=== PATIENT | female | born 1950 | race Caucasian/White ===

== ENCOUNTER 2017-09-09 17:11 | Emergency (ER) | payer MEDICARE, OTHER ==
[~2017-09-09] VITALS: Ht 157.5 cm; Wt 101.3 kg
[2017-09-09 18:19] LABS: BASOPHILS # (AUTO) 0.08 x10^3/uL (0-0.1); BASOPHILS % (AUTO) 1 % (0-1); EOSINOPHILS # (AUTO) 0.41 x10^3/uL (0-0.4); EOSINOPHILS % (AUTO) 5 % (1-7); LYMPHOCYTES # (AUTO) 1.88 x10^3/uL (1-3.4); LYMPHOCYTES % (AUTO) 21 % (22-44); MD NO; MEAN CORPUSCULAR HEMOGLOBIN 29.9 pg (27.0-34.8); MEAN CORPUSCULAR HGB CONC 33.3 g/dL (32.4-35.8); MEAN CORPUSCULAR VOLUME 89.5 fL (80-100); MEAN PLATELET VOLUME 9.3 fL (7.4-10.4); MONOCYTES % (AUTO) 8 % (2-9); NEUTROPHILS # (AUTO) 5.77 x10^3/uL (1.8-6.8); NEUTROPHILS % (AUTO) 65 % (42-75); PLATELET COUNT 219 x10^3/uL (130-400); RED BLOOD COUNT 5.78 x10^6/uL (3.82-5.3); RED CELL DISTRIBUTION WIDTH 14.6 % (9.6-15.2)
[2017-09-09 18:22] LABS: INTERNATIONAL NORMALIZED RATIO 0.99 (0.93-1.1); PROTHROMBIN TIME 10.3 Seconds (9.6-11.5)
[2017-09-09 18:26] LABS: ALANINE AMINOTRANSFERASE 27 U/L (12-78); ALBUMIN 3.3 g/dL (3.4-5.0); CALCIUM 8.9 mg/dL (8.5-10.1); CREATININE 1.26 mg/dL (0.55-1.02)
[2017-09-09 18:28] LABS: ALKALINE PHOSPHATASE 99 U/L (45-117); BILIRUBIN,TOTAL 0.5 mg/dL (0.2-1.0); TOTAL PROTEIN 7.2 g/dL (6.4-8.2)
[2017-09-09 18:45] LABS: ANION GAP 11 mmol/L (5-15); CHLORIDE 109 mmol/L (98-107)
[2017-09-09] MEDS ORDERED: CHLO25TA PO (18:56)
[2017-09-09] MEDS ORDERED: LISI-167 PO (18:56)
[2017-09-09] MEDS ORDERED: ASPI-496 PO (18:56)
[2017-09-09] MEDS ORDERED: RIVA20TA PO (18:56)
[2017-09-09] MEDS ORDERED: METO200T47 PO (18:56)
[2017-09-09] MEDS ORDERED: FURO20TA3 PO (18:56)
[2017-09-09] MEDS ORDERED: POTASSIUM CHLORIDE 20 MEQ TAB.ER.PRT ONE (19:25)
[2017-09-09] MEDS ORDERED: POTASSIUM CHLORIDE 20 MEQ TAB.ER.PRT PO ONE (19:30)
[2017-09-09 19:40] VITALS: BP 128/92
== END 2017-09-09 19:53 | disposition home or self-care (01) ==
LOC: ED 19:45
DX: R53.1 Weakness (principal); G51.0 Bell's palsy; I48.91 Unspecified atrial fibrillation; Z88.0 Allergy status to penicillin
CPT/HCPCS: 36415; 70450; 70551; 80053; 85025; 85610; 85730; 99285

== ENCOUNTER → 2017-09-23 | Outpatient (CLI) | payer MEDICARE, OTHER ==
[~2017-09-23] MED LIST: APIX5TAB PO; ASPI-496 PO; CHLO25TA PO; FURO-93 PO; FURO20TA3 PO; LISI-167 PO; METO-93 PO; METO200T47 PO; POTA1POW4 PO; RIVA20TA PO
== END | disposition home or self-care (01) ==
LOC: CFH 16:35
PROVIDERS: ATTEND Physician Assistant
DX: J44.0 Chronic obstructive pulmonary disease with (acute) lower respiratory infection (principal); J18.9 Pneumonia, unspecified organism
CPT/HCPCS: 71046

== ENCOUNTER 2017-09-29 09:37 | Day surgery (SDC) | payer MEDICARE, OTHER ==
[~2017-09-29] VITALS: Ht 157.5 cm; Wt 103.0 kg
[~2017-09-29 09:37] MED LIST changes: -APIX5TAB PO; -FURO-93 PO; -METO-93 PO; -POTA1POW4 PO
[2017-09-29] MEDS ORDERED: POTA1POW4 PO (10:19)
[2017-09-29] MEDS ORDERED: APIX5TAB PO (10:20)
[2017-09-29] MEDS ORDERED: METO-93 PO (10:21)
[2017-09-29 10:30] VITALS: BP 104/68
[2017-09-29 10:48] LABS: BASOPHILS # (AUTO) 0.08 x10^3/uL (0-0.1); BASOPHILS % (AUTO) 1 % (0-1); EOSINOPHILS # (AUTO) 0.47 x10^3/uL (0-0.4); EOSINOPHILS % (AUTO) 5 % (1-7); LYMPHOCYTES % (AUTO) 19 % (22-44); MD NO; MEAN CORPUSCULAR HEMOGLOBIN 30.4 pg (27.0-34.8); MEAN CORPUSCULAR HGB CONC 33.9 g/dL (32.4-35.8); MEAN CORPUSCULAR VOLUME 89.8 fL (80-100); MEAN PLATELET VOLUME 8.6 fL (7.4-10.4); MONOCYTES # (AUTO) 0.65 x10^3/uL (0.2-0.8); MONOCYTES % (AUTO) 8 % (2-9); NEUTROPHILS # (AUTO) 5.87 x10^3/uL (1.8-6.8); NEUTROPHILS % (AUTO) 68 % (42-75); PLATELET COUNT 229 x10^3/uL (130-400); RED BLOOD COUNT 5.45 x10^6/uL (3.82-5.3); RED CELL DISTRIBUTION WIDTH 15.9 % (9.6-15.2)
[2017-09-29 11:00] LABS: ANION GAP 11 mmol/L (5-15); CALCIUM 8.4 mg/dL (8.5-10.1); CHLORIDE 107 mmol/L (98-107); CREATININE 1.22 mg/dL (0.55-1.02)
[2017-09-29] MEDS ORDERED: FURO-93 PO (11:09)
[2017-09-29] MEDS ORDERED: SODIUM CHLORIDE 0.9% 500 ML IV PRN (12:00)
== END 2017-09-29 13:37 ==
LOC: CACL 09:37
PROVIDERS: ATTEND Internal Medicine Cardiovascular Disease
DX: I48.91 Unspecified atrial fibrillation (principal); I48.92 Unspecified atrial flutter; I49.1 Atrial premature depolarization; I10 Essential (primary) hypertension; G51.0 Bell's palsy; Z71.6 Tobacco abuse counseling; Z88.1 Allergy status to other antibiotic agents; Z88.0 Allergy status to penicillin; Z88.8 Allergy status to other drugs, medicaments and biological substances
CPT/HCPCS: 36415; 80048; 85025; 92960; 93005

== ENCOUNTER 2017-10-19 09:00 | Observation (INO) | payer MEDICARE, OTHER ==
[~2017-10-19] VITALS: Ht 157.5 cm; Wt 105.4 kg
[~2017-10-19 09:00] MED LIST changes: +APIX5TAB PO; +FURO-93 PO; +METO-93 PO; +POTA1POW4 PO
[2017-10-19] MEDS ORDERED: PLEASE ENTER HEIGHT AND WEIGHT MC SCH (10:02)
[2017-10-19] MEDS ORDERED: POTA20TA14 PO (10:17)
[2017-10-19] MEDS ORDERED: TIOT4MIS3 INH (10:17)
[2017-10-19 10:21] VITALS: BP 119/77
[2017-10-19] MEDS ORDERED: NICO-487 TD (10:28)
[2017-10-19] MEDS: CHLORTHALIDONE 25 MG TABLET PO SCH (10:48)
[2017-10-19] MEDS: APIXABAN 5 MG TABLET PO SCH ×2 (10:48→20:47)
[2017-10-19] MEDS ORDERED: METOPROLOL SUCCINATE 50 MG TAB.ER.24H PO SCH ×2 (11:00→21:00)
[2017-10-19] MEDS: AMIODARONE 200 MG TABLET PO SCH ×3 (11:06→20:47)
[2017-10-19] MEDS ORDERED: METO-93 PO (11:18)
[2017-10-19 11:45] LABS: ANION GAP 8 mmol/L (5-15); CALCIUM 8.9 mg/dL (8.5-10.1); CHLORIDE 107 mmol/L (98-107); CHOLESTEROL, TOTAL 188 mg/dL (140-239); CREATININE 1.38 mg/dL (0.55-1.02); TRIGLYCERIDES 156 mg/dL (50-200); VLDL CHOLESTEROL 31 mg/dL (0-25)
[2017-10-19 11:49] LABS: CHOL/HDL RATIO 5.2; FREE T4 (FREE THYROXINE) 1.19 ng/dL (0.76-1.46); HDL CHOL % 19 % (28-40); HDL CHOLESTEROL (DIRECT) 36 mg/dL (40-60); LDL CHOLESTEROL,CALCULATED 121 mg/dL (54-169); LDL/HDL RATIO 3.4 (0.5-3.0); TROPONIN I < 0.015 ng/mL (0.000-0.045)
[2017-10-19] MEDS: POTASSIUM CHLORIDE 20 MEQ TAB.ER.PRT PO SCH ×2 (13:44→17:40)
[2017-10-19 15:00] VITALS: BP 125/80
[2017-10-19 17:03] LABS: TROPONIN I < 0.015 ng/mL (0.000-0.045)
[2017-10-19 18:36] VITALS: BP 102/69
[2017-10-19] MEDS: NICOTINE 21 MG/24 HR PATCH.TD24 TD SCH (20:46)
[2017-10-19] MEDS: SODIUM CHLORIDE FLUSH 10ML SYR IVF SCH (20:48)
[2017-10-19 22:33] LABS: TROPONIN I < 0.015 ng/mL (0.000-0.045)
[2017-10-20 03:53] VITALS: BP 132/77
[2017-10-20] MEDS: ASPIRIN 81 MG TABLET EC PO SCH (06:05)
[2017-10-20 08:03] VITALS: BP 126/61
[2017-10-20 08:13] LABS: ANION GAP 11 mmol/L (5-15); CALCIUM 8.7 mg/dL (8.5-10.1); CHLORIDE 106 mmol/L (98-107); CREATININE 1.26 mg/dL (0.55-1.02)
[2017-10-20] MEDS ORDERED: METOPROLOL SUCCINATE 50 MG TAB.ER.24H PO SCH (09:00)
[2017-10-20] MEDS: CHLORTHALIDONE 25 MG TABLET PO SCH (09:04)
[2017-10-20] MEDS: AMIODARONE 200 MG TABLET PO SCH ×3 (09:04→20:47)
[2017-10-20] MEDS: APIXABAN 5 MG TABLET PO SCH ×2 (09:04→20:47)
[2017-10-20] MEDS: POTASSIUM CHLORIDE 20 MEQ TAB.ER.PRT PO SCH (09:04)
[2017-10-20] MEDS: STIOLTO PO SCH (09:05)
[2017-10-20] MEDS: SODIUM CHLORIDE FLUSH 10ML SYR IVF SCH ×2 (09:05→20:46)
[2017-10-20 14:30] VITALS: BP 117/79
[2017-10-20 19:55] VITALS: BP 114/74
[2017-10-20] MEDS: NICOTINE 21 MG/24 HR PATCH.TD24 TD SCH (20:47)
[2017-10-21 00:44] VITALS: BP 116/70
[2017-10-21 05:24] LABS: CHLORIDE 105 mmol/L (98-107)
[2017-10-21 05:28] LABS: ANION GAP 9 mmol/L (5-15); CALCIUM 9.5 mg/dL (8.5-10.1); CREATININE 1.37 mg/dL (0.55-1.02)
[2017-10-21] MEDS: AMIODARONE 200 MG TABLET PO SCH (08:01)
[2017-10-21] MEDS: CHLORTHALIDONE 25 MG TABLET PO SCH (08:02)
[2017-10-21] MEDS: ASPIRIN 81 MG TABLET EC PO SCH (08:02)
[2017-10-21] MEDS: APIXABAN 5 MG TABLET PO SCH (08:02)
[2017-10-21] MEDS: STIOLTO PO SCH (08:06)
[2017-10-21] MEDS: SODIUM CHLORIDE FLUSH 10ML SYR IVF SCH (08:11)
[2017-10-21 08:18] VITALS: BP 152/68
[2017-10-21] MEDS ORDERED: POTA20TA14 PO (08:54)
[2017-10-21] MEDS ORDERED: METO-93 PO (08:54)
[2017-10-21] MEDS ORDERED: AMIO200T42 PO (08:54)
[2017-10-21] MEDS ORDERED: METOPROLOL SUCCINATE 50 MG TAB.ER.24H PO SCH (09:00)
[2017-10-21] MEDS ORDERED: AMIODARONE 200 MG TABLET PO SCH (21:00)
== END 2017-10-21 13:35 | disposition home or self-care (01) ==
LOC: INTOOBSV 09:38 → 5SO 09:38 → DCLOUNGE 10-21 13:23
PROVIDERS: ADMIT Internal Medicine Cardiovascular Disease; ATTEND Internal Medicine Cardiovascular Disease
DX: I48.0 Paroxysmal atrial fibrillation (principal); I10 Essential (primary) hypertension; G51.0 Bell's palsy; R06.02 Shortness of breath; E87.6 Hypokalemia; I48.92 Unspecified atrial flutter; Z71.6 Tobacco abuse counseling; Z72.0 Tobacco use
CPT/HCPCS: 36415; 71046; 80048; 80061; 83735; 84439; 84443; 84484; 85014; 85018; 93005; G0378

== ENCOUNTER → 2018-02-19 | Outpatient (CLI) | payer MEDICARE, OTHER ==
[~2018-02-19] MED LIST changes: +AMIO200T42 PO; +NICO-487 TD; +POTA20TA14 PO; +TIOT4MIS3 INH
== END | disposition home or self-care (01) ==
LOC: CFH 08:32
PROVIDERS: ATTEND Internal Medicine Critical Care Medicine
DX: Z12.2 Encounter for screening for malignant neoplasm of respiratory organs (principal); F17.210 Nicotine dependence, cigarettes, uncomplicated; J98.11 Atelectasis
CPT/HCPCS: G0297

== ENCOUNTER 2018-05-18 08:09 | Inpatient (IN) | payer MEDICARE, OTHER ==
[~2018-05-18] VITALS: Ht 157.5 cm; Wt 114.0 kg
--- NOTE | 2018-05-18 08:33 | NUR ---
PT C/O CHEST PRESSURE SINCE YESTERDAY. ALSO THIS AM PT NOTED HEMATURIA AND FREQUENCY. ASKED PT FOR URINE SAMPLE. SHE WAS UNABLE TO PROVIDE ONE AT THIS TIME.
[2018-05-18] MEDS ORDERED: NITROGLYCERIN SINGLE TAB 0.4 MG SL ONE ×2 (08:53→09:00)
[2018-05-18] MEDS ORDERED: ASPIRIN 81 MG TABLET CHEW PO ONE (09:00)
[2018-05-18 09:11] LABS: BASOPHILS # (AUTO) 0.07 x10^3/uL (0-0.1); BASOPHILS % (AUTO) 1 % (0-1); EOSINOPHILS # (AUTO) 0.22 x10^3/uL (0-0.4); EOSINOPHILS % (AUTO) 2 % (1-7); LYMPHOCYTES # (AUTO) 1.25 x10^3/uL (1-3.4); LYMPHOCYTES % (AUTO) 12 % (22-44); MD NO; MEAN CORPUSCULAR HEMOGLOBIN 31.4 pg (27.0-34.8); MEAN CORPUSCULAR HGB CONC 33.3 g/dL (32.4-35.8); MEAN CORPUSCULAR VOLUME 94.1 fL (80-100); MEAN PLATELET VOLUME 8.6 fL (7.4-10.4); MONOCYTES # (AUTO) 0.94 x10^3/uL (0.2-0.8); MONOCYTES % (AUTO) 9 % (2-9); NEUTROPHILS # (AUTO) 7.72 x10^3/uL (1.8-6.8); NEUTROPHILS % (AUTO) 76 % (42-75); PLATELET COUNT 235 x10^3/uL (130-400); RED BLOOD COUNT 4.66 x10^6/uL (3.82-5.3); RED CELL DISTRIBUTION WIDTH 15.3 % (9.6-15.2)
[2018-05-18 09:19] LABS: INTERNATIONAL NORMALIZED RATIO 1.11 (0.93-1.1); PROTHROMBIN TIME 11.7 Seconds (9.6-11.5)
[2018-05-18 09:20] LABS: ALANINE AMINOTRANSFERASE 25 U/L (12-78); ALBUMIN 3.2 g/dL (3.4-5.0); ANION GAP 11 mmol/L (5-15); CALCIUM 9.1 mg/dL (8.5-10.1); CHLORIDE 102 mmol/L (98-107); CREATININE 1.45 mg/dL (0.55-1.02)
[2018-05-18 09:25] LABS: ALKALINE PHOSPHATASE 100 U/L (45-117); BILIRUBIN,TOTAL 0.7 mg/dL (0.2-1.0); TOTAL PROTEIN 7.6 g/dL (6.4-8.2); TROPONIN I < 0.015 ng/mL (0.000-0.045)
[2018-05-18] MEDS ORDERED: NITROGLYCERIN 0.4 MG BOTTLE (25 TABS) SL PRN ×2 (09:30→12:00)
[2018-05-18] MEDS ORDERED: FENTANYL PF 100 MCG/2ML IVPush PRN (09:30)
--- NOTE | 2018-05-18 10:07 | NUR ---
PT IS ON ALL MONITORS WITH AUDIBLE ALARMS. VSS. PT STATES JARET X 2 HAS BROUGHT HER CHEST PRESSURE FROM 8 TO 4.
[2018-05-18] MEDS ORDERED: FENTANYL PF 100 MCG/2ML ONE (10:16)
[2018-05-18] MEDS ORDERED: ASPIRIN 81 MG TABLET CHEW ONE (10:16)
[2018-05-18] MEDS ORDERED: GABA300C10 PO (10:32)
[2018-05-18] MEDS ORDERED: AMIO200T42 PO (10:32)
[2018-05-18] MEDS ORDERED: METH500T7 PO (10:32)
--- NOTE | 2018-05-18 10:35 | NUR ---
home med updated us at bed side was completed vss given fentanyl iv per pt's c/o pain
--- NOTE | 2018-05-18 10:59 | NUR ---
straight cath done ua in lab
[2018-05-18 11:22] LABS: MICROSCOPIC INDICATED
[2018-05-18 11:38] LABS: CULTURE INDICATED? YES
[2018-05-18] MEDS ORDERED: morphine SULFATE 10 MG/ML, 1ML IVPush PRN (12:00)
[2018-05-18] MEDS ORDERED: NITROGLYCERIN 0.4 MG/SPRAY SL PRN (12:00)
[2018-05-18] MEDS ORDERED: hydrALAzine 20 MG/ML, 1ML IVPush PRN (12:00)
[2018-05-18] MEDS: TEMPLATE NON-FORMULARY MED. (Tiotropium Br/Olodaterol HCl (Stiolto Respimat Inhal Spray) 2 INH SCH (12:00)
[2018-05-18] MEDS ORDERED: FUROSEMIDE 20 MG TABLET PO PRN (12:00)
--- NOTE | 2018-05-18 12:01 | NUR ---
given report to radha de vss stable
[2018-05-18 13:12] VITALS: BP 126/84
[2018-05-18 15:22] LABS: TROPONIN I < 0.015 ng/mL (0.000-0.045)
[2018-05-18] MEDS: APIXABAN 5 MG TABLET PO SCH ×2 (15:27→20:01)
[2018-05-18] MEDS ORDERED: POTASSIUM CHLORIDE 20 MEQ TAB.ER.PRT PO ONE (18:00)
[2018-05-18] MEDS ORDERED: MAGNESIUM SULFATE PMX 2GM/50ML 50 ML IV ONE (18:00)
[2018-05-18] MEDS: GABAPENTIN 300 MG CAPSULE PO SCH (20:01)
[2018-05-18] MEDS: METHOCARBAMOL 500 MG TABLET PO PRN (20:01)
[2018-05-18 20:02] VITALS: BP 132/73
[2018-05-18 21:45] LABS: TROPONIN I < 0.015 ng/mL (0.000-0.045)
[2018-05-19 00:42] VITALS: BP 132/56
[2018-05-19 05:17] LABS: BASOPHILS # (AUTO) 0.07 x10^3/uL (0-0.1); BASOPHILS % (AUTO) 1 % (0-1); EOSINOPHILS # (AUTO) 0.28 x10^3/uL (0-0.4); EOSINOPHILS % (AUTO) 3 % (1-7); LYMPHOCYTES # (AUTO) 1.52 x10^3/uL (1-3.4); LYMPHOCYTES % (AUTO) 18 % (22-44); MD NO; MEAN CORPUSCULAR HEMOGLOBIN 31.4 pg (27.0-34.8); MEAN CORPUSCULAR HGB CONC 33.4 g/dL (32.4-35.8); MEAN CORPUSCULAR VOLUME 94.2 fL (80-100); MEAN PLATELET VOLUME 8.4 fL (7.4-10.4); MONOCYTES # (AUTO) 0.87 x10^3/uL (0.2-0.8); MONOCYTES % (AUTO) 10 % (2-9); NEUTROPHILS # (AUTO) 5.97 x10^3/uL (1.8-6.8); NEUTROPHILS % (AUTO) 69 % (42-75); PLATELET COUNT 217 x10^3/uL (130-400); RED CELL DISTRIBUTION WIDTH 15.2 % (9.6-15.2)
[2018-05-19 05:39] LABS: CHLORIDE 102 mmol/L (98-107); HEMOGLOBIN A1C 5.9 % (4.2-6.3)
[2018-05-19 05:48] LABS: ANION GAP 8 mmol/L (5-15); CHOL/HDL RATIO 4.2; CHOLESTEROL, TOTAL 186 mg/dL (140-239); CREATININE 1.66 mg/dL (0.55-1.02); HDL CHOL % 24 % (28-40); HDL CHOLESTEROL (DIRECT) 44 mg/dL (40-60); LDL CHOLESTEROL,CALCULATED 113 mg/dL (54-169); LDL/HDL RATIO 2.6 (0.5-3.0); TRIGLYCERIDES 144 mg/dL (50-200); VLDL CHOLESTEROL 29 mg/dL (0-25)
[2018-05-19 07:19] VITALS: BP 137/76
[2018-05-19] MEDS: ASPIRIN 81 MG TABLET EC PO SCH (08:45)
[2018-05-19] MEDS: AMIODARONE 200 MG TABLET PO SCH (08:45)
[2018-05-19] MEDS: TEMPLATE NON-FORMULARY MED. (Tiotropium Br/Olodaterol HCl (Stiolto Respimat Inhal Spray) 2 INH SCH (08:46)
[2018-05-19] MEDS: APIXABAN 5 MG TABLET PO SCH (08:46)
[2018-05-19] MEDS: METOPROLOL SUCCINATE 50 MG TAB.ER.24H PO SCH (08:46)
[2018-05-19] MEDS: GABAPENTIN 300 MG CAPSULE PO SCH ×2 (08:47→20:03)
[2018-05-19] MEDS ORDERED: CHLORTHALIDONE 25 MG TABLET PO SCH (09:00)
[2018-05-19] MEDS ORDERED: REGADENOSON 0.4 MG/5 ML SYRINGE ONE (09:02)
[2018-05-19] MEDS ORDERED: MAGNESIUM SULFATE PMX 2GM/50ML 50 ML IV ONE (11:00)
[2018-05-19] MEDS ORDERED: PHARMACY MAY ADJ FOR RENAL FX MC PRN (11:00)
[2018-05-19] MEDS: SODIUM CHLORIDE 0.9% 1,000 ML IV SCH (11:00)
[2018-05-19] MEDS: CEFTRIAXONE PMX 1GM/50ML 50 ML IV SCH (12:27)
[2018-05-19 12:38] VITALS: BP 132/74
[2018-05-19] MEDS ORDERED: POTASSIUM CHLORIDE 20 MEQ TAB.ER.PRT PO ONE (17:30)
[2018-05-19 19:50] VITALS: BP 119/68
[2018-05-20] MEDS: METHOCARBAMOL 500 MG TABLET PO PRN (01:09)
[2018-05-20 01:14] VITALS: BP 149/69
[2018-05-20] MEDS: SODIUM CHLORIDE 0.9% 1,000 ML IV SCH ×2 (04:04→16:05)
[2018-05-20 06:00] LABS: BASOPHILS # (AUTO) 0.06 x10^3/uL (0-0.1); BASOPHILS % (AUTO) 1 % (0-1); EOSINOPHILS # (AUTO) 0.24 x10^3/uL (0-0.4); EOSINOPHILS % (AUTO) 4 % (1-7); LYMPHOCYTES # (AUTO) 1.38 x10^3/uL (1-3.4); LYMPHOCYTES % (AUTO) 23 % (22-44); MD NO; MEAN CORPUSCULAR HEMOGLOBIN 31.9 pg (27.0-34.8); MEAN CORPUSCULAR HGB CONC 33.8 g/dL (32.4-35.8); MEAN CORPUSCULAR VOLUME 94.4 fL (80-100); MEAN PLATELET VOLUME 8.6 fL (7.4-10.4); MONOCYTES # (AUTO) 0.58 x10^3/uL (0.2-0.8); MONOCYTES % (AUTO) 10 % (2-9); NEUTROPHILS % (AUTO) 63 % (42-75); PLATELET COUNT 185 x10^3/uL (130-400); RED BLOOD COUNT 3.65 x10^6/uL (3.82-5.3); RED CELL DISTRIBUTION WIDTH 14.9 % (9.6-15.2)
[2018-05-20 06:08] LABS: ANION GAP 7 mmol/L (5-15); CALCIUM 8.3 mg/dL (8.5-10.1); CHLORIDE 105 mmol/L (98-107)
[2018-05-20 06:10] LABS: CREATININE 1.66 mg/dL (0.55-1.02)
[2018-05-20 07:05] VITALS: BP 128/85
[2018-05-20] MEDS: TEMPLATE NON-FORMULARY MED. (Tiotropium Br/Olodaterol HCl (Stiolto Respimat Inhal Spray) 2 INH SCH (07:48)
[2018-05-20] MEDS: ASPIRIN 81 MG TABLET EC PO SCH (07:59)
[2018-05-20] MEDS: AMIODARONE 200 MG TABLET PO SCH (08:00)
[2018-05-20] MEDS: METOPROLOL SUCCINATE 50 MG TAB.ER.24H PO SCH (08:00)
[2018-05-20] MEDS: GABAPENTIN 300 MG CAPSULE PO SCH ×2 (08:00→20:39)
[2018-05-20] MEDS: TAMSULOSIN 0.4 MG CAP.ER.24H PO SCH (09:34)
[2018-05-20] MEDS: CEFTRIAXONE PMX 1GM/50ML 50 ML IV SCH (11:31)
[2018-05-20 12:50] VITALS: BP 120/69
[2018-05-20 18:41] VITALS: BP 128/69
[2018-05-21 01:12] VITALS: BP 138/67
[2018-05-21] MEDS ORDERED: GEMFIBROZIL 600 MG TABLET ONE (03:26)
[2018-05-21] MEDS: METHOCARBAMOL 500 MG TABLET PO PRN (03:43)
[2018-05-21] MEDS: SODIUM CHLORIDE 0.9% 1,000 ML IV SCH (05:12)
[2018-05-21 05:16] LABS: BASOPHILS # (AUTO) 0.05 x10^3/uL (0-0.1); BASOPHILS % (AUTO) 1 % (0-1); EOSINOPHILS # (AUTO) 0.27 x10^3/uL (0-0.4); EOSINOPHILS % (AUTO) 4 % (1-7); LYMPHOCYTES # (AUTO) 1.25 x10^3/uL (1-3.4); LYMPHOCYTES % (AUTO) 20 % (22-44); MD NO; MEAN CORPUSCULAR HEMOGLOBIN 31.4 pg (27.0-34.8); MEAN CORPUSCULAR HGB CONC 33.4 g/dL (32.4-35.8); MEAN CORPUSCULAR VOLUME 94.1 fL (80-100); MEAN PLATELET VOLUME 8.7 fL (7.4-10.4); MONOCYTES # (AUTO) 0.55 x10^3/uL (0.2-0.8); MONOCYTES % (AUTO) 9 % (2-9); NEUTROPHILS # (AUTO) 4.25 x10^3/uL (1.8-6.8); NEUTROPHILS % (AUTO) 67 % (42-75); PLATELET COUNT 185 x10^3/uL (130-400); RED BLOOD COUNT 3.72 x10^6/uL (3.82-5.3)
[2018-05-21 05:27] LABS: ANION GAP 7 mmol/L (5-15); CALCIUM 8.6 mg/dL (8.5-10.1); CHLORIDE 106 mmol/L (98-107); CREATININE 1.28 mg/dL (0.55-1.02)
[2018-05-21 07:05] VITALS: BP 145/84
[2018-05-21] MEDS: TEMPLATE NON-FORMULARY MED. (Tiotropium Br/Olodaterol HCl (Stiolto Respimat Inhal Spray) 2 INH SCH (09:00)
[2018-05-21] MEDS: ASPIRIN 81 MG TABLET EC PO SCH (09:14)
[2018-05-21] MEDS: METOPROLOL SUCCINATE 50 MG TAB.ER.24H PO SCH (09:14)
[2018-05-21] MEDS: GABAPENTIN 300 MG CAPSULE PO SCH (09:14)
[2018-05-21] MEDS: AMIODARONE 200 MG TABLET PO SCH (09:14)
[2018-05-21] MEDS: TAMSULOSIN 0.4 MG CAP.ER.24H PO SCH (09:14)
[2018-05-21] MEDS: CEFTRIAXONE PMX 1GM/50ML 50 ML IV SCH (11:13)
[2018-05-21] MEDS ORDERED: CEFD300C37 PO (11:25)
[2018-05-21] MEDS ORDERED: METH500T7 PO (11:25)
[2018-05-21] MEDS ORDERED: TAMS-11 PO (11:30)
[2018-05-21 13:15] VITALS: BP 109/68
== END 2018-05-21 16:50 | disposition home or self-care (01) | DRG 291 ==
LOC: ED 10:00 → INTOOBSV 11:11 → EDIP 11:11 → OBSVTOIN 11:11 → 5SO 12:33 → 3NW 05-20 18:33 → DCLOUNGE 05-21 16:25
PROVIDERS: ADMIT Hospitalist; ATTEND Hospitalist
PROC: 0T9B70Z Drainage of Bladder with Drainage Device, Via Natural or Artificial Opening (ICD-10-PCS; principal; 2018-05-18)
DX: I13.0 Hypertensive heart and chronic kidney disease with heart failure and stage 1 through stage 4 chronic kidney disease, or unspecified chronic kidney disease (principal); N17.0 Acute kidney failure with tubular necrosis; I50.33 Acute on chronic diastolic (congestive) heart failure; N39.0 Urinary tract infection, site not specified; Z68.42 Body mass index [BMI] 45.0-49.9, adult; D68.69 Other thrombophilia; E44.1 Mild protein-calorie malnutrition; N18.3 Chronic kidney disease, stage 3 (moderate); I48.91 Unspecified atrial fibrillation; J44.9 Chronic obstructive pulmonary disease, unspecified; E66.9 Obesity, unspecified; G51.0 Bell's palsy; B96.20 Unspecified Escherichia coli [E. coli] as the cause of diseases classified elsewhere; R31.9 Hematuria, unspecified; K57.90 Diverticulosis of intestine, part unspecified, without perforation or abscess without bleeding; E87.6 Hypokalemia; F17.210 Nicotine dependence, cigarettes, uncomplicated; N20.0 Calculus of kidney; Z79.01 Long term (current) use of anticoagulants; Z99.81 Dependence on supplemental oxygen; Z88.1 Allergy status to other antibiotic agents; Z88.0 Allergy status to penicillin; Z88.2 Allergy status to sulfonamides
CPT/HCPCS: 36415; 71045; 74176; 76770; 78452; 80048; 80053; 80061; 81001; 83036; 83690; 83735; 83880; 84484; 85025; 85610; 85730; 87077; 87086; 87186; 93005; 93017; 93306; 96374; 99285; G0378; J0696; J2785; J3010; A9502; C9898; J3475; J7030

== ENCOUNTER 2018-12-31 13:51 | Outpatient (CLI) | payer MEDICARE, OTHER | END 2018-12-31 23:59 | disposition home or self-care (01) | LOC: CFH 13:51 | PROVIDERS: ATTEND Internal Medicine Cardiovascular Disease | DX: I48.91 Unspecified atrial fibrillation (principal) | CPT/HCPCS: 71046; 75572; Q9967 ==

== ENCOUNTER 2019-01-03 06:30 | Inpatient (IN) | payer MEDICARE, OTHER ==
[~2019-01-03] VITALS: Ht 158.8 cm; Wt 108.0 kg
[2019-01-06 07:16] VITALS: BP 117/73
== END 2019-01-06 12:17 | disposition home or self-care (01) | DRG 274 ==
LOC: CACL 06:30 → ORIP 10:59 → 5SO 12:55 → OBSVTOIN 01-04 14:31 → DCLOUNGE 01-06 12:04
PROVIDERS: ADMIT Internal Medicine Cardiovascular Disease; ATTEND Internal Medicine Cardiovascular Disease
PROC: 02583ZZ Destruction of Conduction Mechanism, Percutaneous Approach (ICD-10-PCS; principal; 2019-01-03)
PROC: 4A0234Z Measurement of Cardiac Electrical Activity, Percutaneous Approach (ICD-10-PCS; 2019-01-03)
PROC: 02K83ZZ Map Conduction Mechanism, Percutaneous Approach (ICD-10-PCS; 2019-01-03)
DX: I48.0 Paroxysmal atrial fibrillation (principal); D68.69 Other thrombophilia; I31.9 Disease of pericardium, unspecified; Z68.41 Body mass index [BMI] 40.0-44.9, adult; I45.81 Long QT syndrome; E66.01 Morbid (severe) obesity due to excess calories; G89.29 Other chronic pain; R09.02 Hypoxemia; Z79.01 Long term (current) use of anticoagulants; Z87.891 Personal history of nicotine dependence; Z99.81 Dependence on supplemental oxygen
CPT/HCPCS: 36415; 80048; 85025; 85347; 85610; 85730; 93005; 93306; 93312; 93321; 93325; 93613; 93656; 93657; 93662; C1732; C1766; C1893; C1894; G0378; J1644; J1885; J2250; J2550; J2704; J3010; C1730; C1759; J0330; J1200